=== PATIENT | male | born 1960 | race Two or more races ===

== ENCOUNTER 2022-04-29 17:40 | Emergency (ER) | payer BC ==
[~2022-04-29] VITALS: Ht 177.8 cm; Wt 72.6 kg
[2022-04-29 17:44] VITALS: BP_SYST 132
--- NOTE | 2022-04-29 20:45 | NUR ---
Pt brought by self, A&Ox4, pt presents to ER with R ankle pain/ swelling, pt requesting to r/o DVT, skin pink and warm , cap refill <3. VSS
--- NOTE | 2022-04-29 21:36 | NUR ---
Report given to Celia PALACIOS
--- NOTE | 2022-04-29 21:45 | NUR ---
Patient ambulatory to [place] [id number]
--- NOTE | 2022-04-29 21:48 | NUR ---
ER examining patient.
--- NOTE | 2022-04-29 21:50 | NUR ---
Patient sitting comfortably upright in chair. Nad noted at this time.
[2022-04-29] MEDS ORDERED: ACET-2634 PO (21:55)
[2022-04-29] MEDS ORDERED: NAPR-1172 PO (21:55)
[2022-04-29 22:00] VITALS: BP_SYST 132
--- NOTE | 2022-04-29 22:00 | NUR ---
Patient given written and verbal discharge instructions and verbalizes understanding. ER MD discussed with patient the results and treatment provided. Patient in stable condition. ID arm band removed. Rx of naproxen and acetaminophen given. Patient educated on pain management and to follow up with PMD. Pain Scale 0/10. Opportunity for questions provided and answered. Medication side effect fact sheet provided. Patient A/Ox4, VSS, ambulatory, resp even and unlabored. Nad noted at this time.
== END 2022-04-29 22:00 | disposition home or self-care (01) ==
LOC: SED 17:40
DX: S93.401A Sprain of unspecified ligament of right ankle, initial encounter (principal); Z79.899 Other long term (current) drug therapy; X58.XXXA Exposure to other specified factors, initial encounter; Y93.89 Activity, other specified; Y92.89 Other specified places as the place of occurrence of the external cause; Y99.8 Other external cause status
CPT/HCPCS: 93971; 99284